=== PATIENT | female | born 1945 | race African-American/Black ===

== ENCOUNTER 2023-12-24 15:13 | Emergency (ER) | payer OTHER ==
[~2023-12-24] VITALS: Ht 175.3 cm; Wt 68.0 kg
[2023-12-24 15:16] VITALS: O2SAT 95
[2023-12-24 16:21] LABS: BASOPHILS % 0.9 % (0.0-2.0); EOSINOPHILS % 1.8 % (0.0-5.0); HEMATOCRIT. 34.4 % (36.0-48.0); HEMOGLOBIN. 11.2 g/dL (12.0-16.0); LYMPHOCYTES % 26.3 % (20.0-50.0); MEAN CORPUSCULAR HEMOGLOBIN 29.8 pg (28.0-32.0); MEAN CORPUSCULAR HGB CONC 32.6 g/dL (31.0-37.0); MEAN CORPUSCULAR VOLUME 91.3 fL (81.0-99.0); MEAN PLATELET VOLUME 8.9 fl (7.4-10.4); MONOCYTES % 14.5 % (2.0-8.0); NEUTROPHILS % 56.5 % (40.0-76.0); PLATELET 185 x1000/uL (130-400); RED BLOOD CELL COUNT 3.76 mill/uL (4.2-5.4); RED CELL DISTRIBUTION WIDTH 14.9 % (11.6-14.6); WHITE BLOOD COUNT 5.6 x1000/uL (4.5-11.0)
[2023-12-24] MEDS ORDERED: DEXTROSE 50% WATER 50ML SYRINGE IV ONE (16:34)
[2023-12-24 16:39] LABS: INR 0.9; PROTHROMBIN TIME 10.2 sec (9.6-11.0)
[2023-12-24 16:43] LABS: CHLORIDE 107 mEq/L (98-107); POTASSIUM 4.7 mEq/L (3.5-5.1); SODIUM 143 mEq/L (136-145)
[2023-12-24 16:44] LABS: CALCIUM 9.5 mg/dL (8.7-10.4); CARBON DIOXIDE 31 mEq/L (21-32)
[2023-12-24 16:48] LABS: TROPONIN I HIGH SENSITIVITY 6 ng/L (3.0-34)
[2023-12-24 16:49] LABS: CREATININE 1.3 mg/dL (0.6-1.0); UREA NITROGEN BLOOD 22 mg/dL (9-23)
[2023-12-24 16:51] LABS: ALANINE AMINOTRANSFERASE 17 IU/L (10-49); ALBUMIN 4.1 g/dL (3.2-4.8); ASPARTATE AMINOTRANSFERASE 28 IU/L (<34)
[2023-12-24 16:52] LABS: BILIRUBIN TOTAL 0.4 mg/dL (0.1-1.0); PROTEIN TOTAL 6.8 g/dL (6.0-8.3)
[2023-12-24 16:53] LABS: THYROID STIMULATING HORMONE 8.12 uIU/mL (0.55-4.78)
[2023-12-24 16:56] LABS: GLUCOSE 34 mg/dL (70-105)
[2023-12-24 16:57] LABS: BILIRUBIN DIRECT < 0.1 mg/dL (<=3.0)
[2023-12-24] MEDS: DEXTROSE 50% WATER 50ML SYRINGE IV ONE (17:22)
[2023-12-24] MEDS ORDERED: DEXT 10% WATER 1,000 ML IV SCH (17:45)
[2023-12-24 17:46] LABS: TROPONIN I HIGH SENSITIVITY 7 ng/L (3.0-34)
[2023-12-24] MEDS: DEXT 10% WATER 1,000 ML IV SCH (18:00)
[2023-12-24 19:50] LABS: CLARITY URINE CLEAR (CLEAR); COLOR URINE YELLOW (YELLOW); GLUCOSE URINE NEGATIVE (NEGATIVE); KETONES URINE NEGATIVE (NEGATIVE); LEUKOCYTE ESTERASE URINE TRACE (NEGATIVE); NITRITE URINE NEGATIVE (NEGATIVE); OCCULT BLOOD URINE NEGATIVE (NEGATIVE); PH URINE 7.5 (4.5-8.0); PROTEIN URINE NEGATIVE (NEGATIVE); SPECIFIC GRAVITY URINE 1.006 (1.005-1.030); UROBILINOGEN URINE 0.2 E.U./dL (0.2-1.0)
[2023-12-24 20:18] LABS: BACTERIA URINE NONE SEEN; RBC URINE NONE SEEN /hpf (0-2); SQUAMOUS EPITHELIAL CELL URINE RARE /lpf (RARE/1+); WBC URINE 0-2 /hpf (0-2)
[2023-12-24 20:45] VITALS: BP 155/58; PULSE 51; RESP 10; TEMP 98.4
== END 2023-12-24 21:41 | disposition short-term general hospital (02) ==
LOC: ER 15:13
DX: E11.649 Type 2 diabetes mellitus with hypoglycemia without coma (principal); R55 Syncope and collapse; R00.1 Bradycardia, unspecified; I10 Essential (primary) hypertension
CPT/HCPCS: 36415; 70486; 71045; 80048; 80076; 81003; 82962; 83880; 84443; 84484; 85025; 86850; 86900; 93005; 96374; 96375; 99285